=== PATIENT | female | born 1995 | race Caucasian/White ===

== ENCOUNTER 2024-11-01 18:17 | Emergency (ER) | payer BC, MEDICAID, OTHER ==
[~2024-11-01] VITALS: Ht 162.6 cm; Wt 56.7 kg
[2024-11-01 18:43] VITALS: O2SAT 100
== END 2024-11-01 23:45 | disposition left against medical advice (07) ==
LOC: ER 18:17
DX: R52 Pain, unspecified (principal); Z53.21 Procedure and treatment not carried out due to patient leaving prior to being seen by health care provider
CPT/HCPCS: A4606; A4663